=== PATIENT | male | born 1965 | race African-American/Black ===

== ENCOUNTER 2021-07-07 14:27 | Inpatient (IN) | payer BC ==
[2021-07-07 18:02] VITALS: BMI 36.4
[2021-07-07] MEDS ORDERED: ACETAMINOPHEN 325 MG TABLET (FP) PO PRN ×2 (20:39)
[2021-07-07] MEDS ORDERED: IBUPROFEN 400 MG TABLET (FP) PO PRN (20:39)
[2021-07-07] MEDS ORDERED: BISMUTH SUBSALICYLATE 524 MG/30 ML PO PRN (20:39)
[2021-07-07] MEDS ORDERED: MAGNESIUM HYDROX 2400MG/30ML ORAL SUSPENSION 30 ML CUP PO PRN (20:39)
[2021-07-07] MEDS ORDERED: ONDANSETRON *ODT* 4 MG TABLET SL PRN (20:39)
[2021-07-07] MEDS ORDERED: MAG HYDROX/AL HYDROX/SIMETH 30 ML UNIT-DOSE CUP PO PRN (20:39)
[2021-07-07] MEDS ORDERED: MENTHOL/PHENOL 1 EACH UD MM PRN (20:39)
[2021-07-07] MEDS ORDERED: METHOCARBAMOL 500 MG TABLET PO PRN (20:39)
[2021-07-07] MEDS ORDERED: MAGNESIUM CITRATE 300 ML BOTTLE PO PRN (20:39)
[2021-07-07] MEDS ORDERED: diazePAM 5 MG TABLET PO PRN (20:42)
[2021-07-08] MEDS ORDERED: diazePAM 5 MG TABLET ONE (00:02)
[2021-07-08] MEDS: THIAMINE HCL 100 MG TABLET (FP) PO SCH ×2 (00:07→22:05)
[2021-07-08] MEDS: MELATONIN 5 MG TABLETS PO SCH ×2 (00:07→22:08)
[2021-07-08] MEDS: diazePAM 5 MG TABLET PO SCH ×5 (00:07→22:05)
[2021-07-08] MEDS ORDERED: INSULIN (NOVOLOG) ASPART 100 UNITS/ML 10ML VIAL ONE ×4 (06:15→20:43)
[2021-07-08] MEDS ORDERED: INSULIN SLIDING SCALE (NOVOLOG) 1 VIAL SQ SCH (07:00)
[2021-07-08 08:22] LABS: HEMATOCRIT 32.2 % (35.4-49); HEMOGLOBIN 10.6 GM/dL (11.7-16.9); MCHC 32.9 g/dl (32.0-35.9); MEAN CELL VOLUME 82.3 fl (80-96); MEAN PLT VOLUME 8.6 fl (7.5-11.1); PLATELET COUNT 376 10^3/uL (134-434); RBC 3.91 M/mm3 (4.00-5.60); RDW 18.6 % (11.9-15.9); WHITE BLOOD COUNT 8.6 K/mm3 (4.0-10.0)
[2021-07-08 08:27] LABS: CHLORIDE 100 mmol/L (98-107); SODIUM 133 mmol/L (136-145)
[2021-07-08 08:57] LABS: ALBUMIN 3.6 g/dl (3.4-5.0)
[2021-07-08 08:59] LABS: ALK PHOS 160 U/L (45-117); ANION GAP 8 MMOL/L (8-16); BLOOD UREA NITROGEN 36.1 mg/dL (7-18); CO2 26 mmol/L (21-32); CREATININE 1.7 mg/dL (0.55-1.3); SGPT/ALT 29 U/L (13-61)
[2021-07-08 09:01] LABS: BILIRUBIN,TOTAL 0.5 mg/dL (0.2-1); TOT PROT 8.6 g/dl (6.4-8.2)
[2021-07-08 09:04] LABS: SGOT/AST 15 U/L (15-37)
[2021-07-08 09:08] LABS: GLUCOSE,RANDOM 427 mg/dL (74-106)
[2021-07-08] MEDS ORDERED: cloNIDine HCL 0.1 MG TABLET PO PRN (09:37)
[2021-07-08] MEDS: PRENATAL VITAMINS W/ FOLIC ACID TABLET (FP) PO SCH (11:14)
[2021-07-08] MEDS: INSULIN SLIDING SCALE (NOVOLOG) 1 VIAL SQ SCH ×3 (11:44→22:06)
[2021-07-08] MEDS: INSULIN (LEVEMIR) 100 UNITS/ML UNITS SQ SCH ×2 (11:44→18:00)
[2021-07-08] MEDS: SERTRALINE HCL 50 MG TABLET (FP) PO SCH (12:10)
[2021-07-08] MEDS: QUEtiapine FUMARATE 100 MG TABLET (FP) PO SCH (22:06)
[2021-07-09] MEDS: diazePAM 5 MG TABLET PO SCH ×3 (06:22→22:37)
[2021-07-09] MEDS: INSULIN (LEVEMIR) 100 UNITS/ML UNITS SQ SCH ×2 (06:23→18:22)
[2021-07-09] MEDS: INSULIN SLIDING SCALE (NOVOLOG) 1 VIAL SQ SCH ×4 (06:24→22:35)
[2021-07-09] MEDS: SERTRALINE HCL 50 MG TABLET (FP) PO SCH (10:13)
[2021-07-09] MEDS: PRENATAL VITAMINS W/ FOLIC ACID TABLET (FP) PO SCH (10:13)
[2021-07-09] MEDS ORDERED: INSULIN (NOVOLOG) ASPART 100 UNITS/ML 10ML VIAL ONE ×3 (11:41→22:35)
[2021-07-09] MEDS: THIAMINE HCL 100 MG TABLET (FP) PO SCH (22:32)
[2021-07-09] MEDS: MELATONIN 5 MG TABLETS PO SCH (22:32)
[2021-07-09] MEDS: QUEtiapine FUMARATE 100 MG TABLET (FP) PO SCH (22:33)
[2021-07-10] MEDS: diazePAM 5 MG TABLET PO SCH ×2 (06:24→17:55)
[2021-07-10] MEDS: INSULIN (LEVEMIR) 100 UNITS/ML UNITS SQ SCH ×2 (06:34→20:30)
[2021-07-10] MEDS: INSULIN SLIDING SCALE (NOVOLOG) 1 VIAL SQ SCH ×4 (07:11→20:33)
[2021-07-10] MEDS ORDERED: INSULIN (NOVOLOG) ASPART 100 UNITS/ML 10ML VIAL ONE ×2 (11:33→20:34)
[2021-07-10] MEDS: SERTRALINE HCL 50 MG TABLET (FP) PO SCH (11:34)
[2021-07-10] MEDS: PRENATAL VITAMINS W/ FOLIC ACID TABLET (FP) PO SCH (11:34)
[2021-07-10] MEDS: MELATONIN 5 MG TABLETS PO SCH (22:33)
[2021-07-10] MEDS: THIAMINE HCL 100 MG TABLET (FP) PO SCH (22:33)
[2021-07-10] MEDS: QUEtiapine FUMARATE 100 MG TABLET (FP) PO SCH (22:33)
[2021-07-11] MEDS ORDERED: diazePAM 5 MG TABLET PO ONE (06:00)
[2021-07-11 06:12] VITALS: BP 123/71; PULSE 61; TEMP 97.7
[2021-07-11] MEDS: INSULIN SLIDING SCALE (NOVOLOG) 1 VIAL SQ SCH (06:53)
[2021-07-11] MEDS: INSULIN (LEVEMIR) 100 UNITS/ML UNITS SQ SCH (06:53)
[2021-07-11] MEDS: SERTRALINE HCL 50 MG TABLET (FP) PO SCH (10:16)
[2021-07-11] MEDS: PRENATAL VITAMINS W/ FOLIC ACID TABLET (FP) PO SCH (10:16)
== END 2021-07-11 09:52 | disposition home or self-care (01) | DRG 774 ==
LOC: YASAS 14:27 → Y6N 07-08 02:03
PROVIDERS: ADMIT Allergy & Immunology; ATTEND Allergy & Immunology
PROC: HZ2ZZZZ Detoxification Services for Substance Abuse Treatment (ICD-10-PCS; principal; 2021-07-08)
DX: F10.230 Alcohol dependence with withdrawal, uncomplicated (principal); F14.10 Cocaine abuse, uncomplicated; F16.20 Hallucinogen dependence, uncomplicated; F10.280 Alcohol dependence with alcohol-induced anxiety disorder; F32.9 Major depressive disorder, single episode, unspecified; F41.9 Anxiety disorder, unspecified; E11.42 Type 2 diabetes mellitus with diabetic polyneuropathy; E11.65 Type 2 diabetes mellitus with hyperglycemia; Z79.4 Long term (current) use of insulin; G62.9 Polyneuropathy, unspecified; L97.528 Non-pressure chronic ulcer of other part of left foot with other specified severity; L97.511 Non-pressure chronic ulcer of other part of right foot limited to breakdown of skin; E66.9 Obesity, unspecified; Z68.39 Body mass index [BMI] 39.0-39.9, adult; Z62.810 Personal history of physical and sexual abuse in childhood; R26.89 Other abnormalities of gait and mobility; Z99.89 Dependence on other enabling machines and devices; Z89.422 Acquired absence of other left toe(s); Z89.421 Acquired absence of other right toe(s); Z87.891 Personal history of nicotine dependence; Z87.39 Personal history of other diseases of the musculoskeletal system and connective tissue; Y83.5 Amputation of limb(s) as the cause of abnormal reaction of the patient, or of later complication, without mention of misadventure at the time of the procedure
CPT/HCPCS: 36415; 80053; 82962; 85027; 86780; 93005; 93010; C9803; J0735; U0003; U0005

== ENCOUNTER 2022-01-05 12:30 | Inpatient (IN) | payer BC ==
[2022-01-05] MEDS ORDERED: MAG HYDROX/AL HYDROX/SIMETH 30 ML UNIT-DOSE CUP PO PRN (18:15)
[2022-01-05] MEDS ORDERED: guaiFENesin 200 MG/10 ML 10 ML UNIT-DOSE CUPS PO PRN (18:15)
[2022-01-05] MEDS ORDERED: MAGNESIUM CITRATE 300 ML BOTTLE PO PRN (18:15)
[2022-01-05] MEDS ORDERED: LOPERAMIDE HCL 2 MG CAPSULE PO PRN (18:15)
[2022-01-05] MEDS ORDERED: MAGNESIUM HYDROX 2400MG/30ML ORAL SUSPENSION 30 ML CUP PO PRN (18:15)
[2022-01-05] MEDS ORDERED: NICOTINE 10 MG CARTRIDGE (INHALER) IH PRN (18:15)
[2022-01-05] MEDS ORDERED: ACETAMINOPHEN 325 MG TABLET (FP) PO PRN (18:15)
[2022-01-05] MEDS ORDERED: IBUPROFEN 400 MG TABLET (FP) PO PRN (18:15)
[2022-01-05] MEDS ORDERED: P-EPHED 60MG/TRIPROLIDI 2.5MG TABLET PO PRN (18:15)
[2022-01-05] MEDS: INSULIN (LEVEMIR) 100 UNITS/ML UNITS SQ SCH (23:37)
[2022-01-05] MEDS: BACITRACIN 0.9 GM PACKET TP SCH (23:40)
[2022-01-05] MEDS: hydrOXYzine PAMOATE 25 MG CAPSULE (FP) PO SCH (23:41)
[2022-01-05] MEDS: THIAMINE HCL 100 MG TABLET (FP) PO SCH (23:41)
[2022-01-05] MEDS: MELATONIN 5 MG TABLETS PO SCH (23:42)
[2022-01-06] MEDS: VITAMINS A AND D TOPICAL OINTMENT 60 GM TUBE TP SCH ×4 (00:57→20:36)
[2022-01-06] MEDS: hydrOXYzine PAMOATE 25 MG CAPSULE (FP) PO SCH ×3 (05:45→10:34)
[2022-01-06] MEDS: INSULIN SLIDING SCALE (NOVOLOG) 1 VIAL SQ SCH ×2 (06:52→16:52)
[2022-01-06 10:20] LABS: HEMATOCRIT 35.3 % (35.4-49); HEMOGLOBIN 11.3 GM/dL (11.7-16.9); MCH 27.1 pg (25.7-33.7); MCHC 32.1 g/dl (32.0-35.9); MEAN CELL VOLUME 84.6 fl (80-96); MEAN PLT VOLUME 9.4 fl (7.5-11.1); PLATELET COUNT 297 10^3/uL (134-434); RBC 4.18 M/mm3 (4.00-5.60); RDW 15.6 % (11.9-15.9); WHITE BLOOD COUNT 5.8 K/mm3 (4.0-10.0)
[2022-01-06] MEDS: BACITRACIN 0.9 GM PACKET TP SCH ×2 (10:34→21:21)
[2022-01-06] MEDS: PRENATAL VITAMINS W/ FOLIC ACID TABLET (FP) PO SCH (10:34)
[2022-01-06] MEDS: NICOTINE 7 MG/24 HOURS TOPICAL PATCH TD SCH (10:34)
[2022-01-06 11:19] LABS: HIV INTERPRETATION NEGATIVE (NEGATIVE)
[2022-01-06 11:20] LABS: ALBUMIN 3.2 g/dl (3.4-5.0)
[2022-01-06 11:21] LABS: BLOOD UREA NITROGEN 31.5 mg/dL (7-18)
[2022-01-06 11:23] LABS: CREATININE 1.5 mg/dL (0.55-1.3)
[2022-01-06 11:25] LABS: BILIRUBIN,TOTAL 0.2 mg/dL (0.2-1)
[2022-01-06 11:26] LABS: TOT PROT 7.4 g/dl (6.4-8.2)
[2022-01-06] MEDS ORDERED: FLU VACC QS2021-22(6MOS UP)/PF 60 MCG/0.5 ML SYRINGE IM ONE (13:00)
[2022-01-06] MEDS: MELATONIN 5 MG TABLETS PO SCH (21:22)
[2022-01-06] MEDS: QUEtiapine FUMARATE 100 MG TABLET (FP) PO SCH (21:23)
[2022-01-06] MEDS: THIAMINE HCL 100 MG TABLET (FP) PO SCH (21:23)
[2022-01-06] MEDS: INSULIN (LEVEMIR) 100 UNITS/ML UNITS SQ SCH (21:28)
[2022-01-07] MEDS: VITAMINS A AND D TOPICAL OINTMENT 60 GM TUBE TP SCH ×4 (01:37→17:04)
[2022-01-07] MEDS: INSULIN SLIDING SCALE (NOVOLOG) 1 VIAL SQ SCH ×2 (07:10→16:50)
[2022-01-07] MEDS: BACITRACIN 0.9 GM PACKET TP SCH ×2 (11:05→22:20)
[2022-01-07] MEDS: PRENATAL VITAMINS W/ FOLIC ACID TABLET (FP) PO SCH (11:06)
[2022-01-07] MEDS: NICOTINE 7 MG/24 HOURS TOPICAL PATCH TD SCH (11:06)
[2022-01-07] MEDS: MELATONIN 5 MG TABLETS PO SCH (22:25)
[2022-01-07] MEDS: THIAMINE HCL 100 MG TABLET (FP) PO SCH (22:25)
[2022-01-07] MEDS: QUEtiapine FUMARATE 100 MG TABLET (FP) PO SCH (22:25)
[2022-01-07] MEDS: INSULIN (LEVEMIR) 100 UNITS/ML UNITS SQ SCH (22:27)
[2022-01-08] MEDS: VITAMINS A AND D TOPICAL OINTMENT 60 GM TUBE TP SCH ×4 (00:02→19:06)
[2022-01-08] MEDS: INSULIN SLIDING SCALE (NOVOLOG) 1 VIAL SQ SCH ×2 (07:47→16:53)
[2022-01-08] MEDS: NICOTINE 7 MG/24 HOURS TOPICAL PATCH TD SCH (10:21)
[2022-01-08] MEDS: BACITRACIN 0.9 GM PACKET TP SCH ×2 (10:21→21:05)
[2022-01-08] MEDS: PRENATAL VITAMINS W/ FOLIC ACID TABLET (FP) PO SCH (10:21)
[2022-01-08] MEDS: QUEtiapine FUMARATE 100 MG TABLET (FP) PO SCH (21:05)
[2022-01-08] MEDS: INSULIN (LEVEMIR) 100 UNITS/ML UNITS SQ SCH (21:05)
[2022-01-08] MEDS: MELATONIN 5 MG TABLETS PO SCH (21:05)
[2022-01-08] MEDS: THIAMINE HCL 100 MG TABLET (FP) PO SCH (21:05)
[2022-01-08] MEDS: hydrOXYzine PAMOATE 25 MG CAPSULE (FP) PO PRN (21:05)
[2022-01-09] MEDS: VITAMINS A AND D TOPICAL OINTMENT 60 GM TUBE TP SCH ×4 (00:42→18:00)
[2022-01-09] MEDS: INSULIN SLIDING SCALE (NOVOLOG) 1 VIAL SQ SCH ×2 (07:01→17:19)
[2022-01-09] MEDS: PRENATAL VITAMINS W/ FOLIC ACID TABLET (FP) PO SCH (10:46)
[2022-01-09] MEDS: NICOTINE 7 MG/24 HOURS TOPICAL PATCH TD SCH (10:46)
[2022-01-09] MEDS: BACITRACIN 0.9 GM PACKET TP SCH ×2 (10:46→23:12)
[2022-01-09] MEDS: MELATONIN 5 MG TABLETS PO SCH (21:06)
[2022-01-09] MEDS: hydrOXYzine PAMOATE 25 MG CAPSULE (FP) PO PRN (21:06)
[2022-01-09] MEDS: INSULIN (LEVEMIR) 100 UNITS/ML UNITS SQ SCH (21:06)
[2022-01-09] MEDS: QUEtiapine FUMARATE 100 MG TABLET (FP) PO SCH (21:06)
[2022-01-09] MEDS: THIAMINE HCL 100 MG TABLET (FP) PO SCH (21:06)
[2022-01-10 00:06] LABS: SARS-CoV-2 NAA Not Detected (Not Detected)
[2022-01-10] MEDS: VITAMINS A AND D TOPICAL OINTMENT 60 GM TUBE TP SCH ×4 (00:42→18:27)
[2022-01-10] MEDS: INSULIN SLIDING SCALE (NOVOLOG) 1 VIAL SQ SCH ×2 (07:32→17:00)
[2022-01-10] MEDS: NICOTINE 7 MG/24 HOURS TOPICAL PATCH TD SCH (10:16)
[2022-01-10] MEDS: PRENATAL VITAMINS W/ FOLIC ACID TABLET (FP) PO SCH (10:16)
[2022-01-10] MEDS: BACITRACIN 0.9 GM PACKET TP SCH ×2 (10:16→21:23)
[2022-01-10] MEDS ORDERED: GABAPENTIN 400 MG CAPSULE PO SCH (14:00)
[2022-01-10] MEDS ORDERED: GABAPENTIN 300 MG CAPSULE PO SCH (14:31)
[2022-01-10] MEDS: GABAPENTIN 300 MG CAPSULE PO SCH ×2 (14:50→21:23)
[2022-01-10] MEDS ORDERED: metFORMIN HCL 500 MG TABLET (FP) PO SCH (16:30)
[2022-01-10] MEDS: INSULIN (LEVEMIR) 100 UNITS/ML UNITS SQ SCH (21:21)
[2022-01-10] MEDS: QUEtiapine FUMARATE 100 MG TABLET (FP) PO SCH (21:23)
[2022-01-10] MEDS: MELATONIN 5 MG TABLETS PO SCH (21:23)
[2022-01-10] MEDS: THIAMINE HCL 100 MG TABLET (FP) PO SCH (21:23)
[2022-01-11] MEDS: VITAMINS A AND D TOPICAL OINTMENT 60 GM TUBE TP SCH ×4 (01:05→18:00)
[2022-01-11] MEDS: GABAPENTIN 300 MG CAPSULE PO SCH ×3 (06:58→22:08)
[2022-01-11] MEDS: INSULIN SLIDING SCALE (NOVOLOG) 1 VIAL SQ SCH ×2 (06:59→17:08)
[2022-01-11] MEDS: BACITRACIN 0.9 GM PACKET TP SCH ×2 (11:03→22:10)
[2022-01-11] MEDS: PRENATAL VITAMINS W/ FOLIC ACID TABLET (FP) PO SCH (11:03)
[2022-01-11] MEDS: NICOTINE 7 MG/24 HOURS TOPICAL PATCH TD SCH (11:03)
[2022-01-11] MEDS: MELATONIN 5 MG TABLETS PO SCH (22:08)
[2022-01-11] MEDS: INSULIN (LEVEMIR) 100 UNITS/ML UNITS SQ SCH (22:08)
[2022-01-11] MEDS: QUEtiapine FUMARATE 100 MG TABLET (FP) PO SCH (22:08)
[2022-01-11] MEDS: THIAMINE HCL 100 MG TABLET (FP) PO SCH (22:08)
[2022-01-12] MEDS: VITAMINS A AND D TOPICAL OINTMENT 60 GM TUBE TP SCH ×4 (00:20→18:07)
[2022-01-12] MEDS: GABAPENTIN 300 MG CAPSULE PO SCH ×3 (07:10→21:14)
[2022-01-12] MEDS: INSULIN SLIDING SCALE (NOVOLOG) 1 VIAL SQ SCH ×2 (07:12→16:54)
[2022-01-12] MEDS: BACITRACIN 0.9 GM PACKET TP SCH ×2 (10:17→21:12)
[2022-01-12] MEDS: PRENATAL VITAMINS W/ FOLIC ACID TABLET (FP) PO SCH (10:17)
[2022-01-12] MEDS: NICOTINE 7 MG/24 HOURS TOPICAL PATCH TD SCH (10:17)
[2022-01-12 18:03] LABS: EPI CELLS 3 /uL (0-25.1); HYALINE CASTS 0 /uL (0-3.1); PH,URINE 5.5 (5.0-8.0); URINE APPEARANCE CLEAR; URINE BACTERIA 301 /uL (0-1359); URINE BILIRUBIN NEGATIVE (NEGATIVE); URINE COLOR YELLOW; URINE GLUCOSE (UA) 2+ (NEGATIVE); URINE KETONE NEGATIVE (NEGATIVE); URINE LEUK ESTERASE NEGATIVE (NEGATIVE); URINE NITRITE NEGATIVE (NEGATIVE); URINE PROTEIN 1+ (NEGATIVE); URINE RBC 2 /uL (0-23.9); URINE UROBILINOGEN 0.2 mg/dL (0.2-1.0); URINE WBC 1 /uL (0-25.8)
[2022-01-12] MEDS: THIAMINE HCL 100 MG TABLET (FP) PO SCH (21:13)
[2022-01-12] MEDS: hydrOXYzine PAMOATE 25 MG CAPSULE (FP) PO PRN (21:13)
[2022-01-12] MEDS: QUEtiapine FUMARATE 100 MG TABLET (FP) PO SCH (21:13)
[2022-01-12] MEDS: INSULIN (LEVEMIR) 100 UNITS/ML UNITS SQ SCH (21:14)
[2022-01-12] MEDS: MELATONIN 5 MG TABLETS PO SCH (21:14)
[2022-01-13] MEDS: VITAMINS A AND D TOPICAL OINTMENT 60 GM TUBE TP SCH ×4 (00:36→17:22)
[2022-01-13] MEDS: GABAPENTIN 300 MG CAPSULE PO SCH ×3 (07:10→21:21)
[2022-01-13] MEDS: INSULIN SLIDING SCALE (NOVOLOG) 1 VIAL SQ SCH ×2 (07:10→17:21)
[2022-01-13 07:23] VITALS: BP 140/70; PULSE 61; TEMP 96.3
[2022-01-13] MEDS: BACITRACIN 0.9 GM PACKET TP SCH ×2 (11:13→21:22)
[2022-01-13] MEDS: PRENATAL VITAMINS W/ FOLIC ACID TABLET (FP) PO SCH (11:13)
[2022-01-13] MEDS: NICOTINE 7 MG/24 HOURS TOPICAL PATCH TD SCH (11:13)
[2022-01-13] MEDS: INSULIN (LEVEMIR) 100 UNITS/ML UNITS SQ SCH (21:22)
[2022-01-13] MEDS: MELATONIN 5 MG TABLETS PO SCH (21:22)
[2022-01-13] MEDS: QUEtiapine FUMARATE 100 MG TABLET (FP) PO SCH (21:22)
[2022-01-13] MEDS: THIAMINE HCL 100 MG TABLET (FP) PO SCH (21:22)
[2022-01-14] MEDS: VITAMINS A AND D TOPICAL OINTMENT 60 GM TUBE TP SCH ×3 (00:36→12:02)
[2022-01-14] MEDS ORDERED: INSULIN (NOVOLOG) ASPART 100 UNITS/ML 10ML VIAL ONE (02:39)
[2022-01-14] MEDS: GABAPENTIN 300 MG CAPSULE PO SCH ×2 (07:34→13:33)
[2022-01-14] MEDS: INSULIN SLIDING SCALE (NOVOLOG) 1 VIAL SQ SCH (07:34)
[2022-01-14] MEDS: PRENATAL VITAMINS W/ FOLIC ACID TABLET (FP) PO SCH (10:05)
[2022-01-14] MEDS: NICOTINE 7 MG/24 HOURS TOPICAL PATCH TD SCH (10:05)
[2022-01-14] MEDS: BACITRACIN 0.9 GM PACKET TP SCH (10:08)
== END 2022-01-14 13:36 | disposition home or self-care (01) | DRG 772 ==
LOC: YASAS 12:30 → Y5N 17:59
PROVIDERS: ADMIT Allergy & Immunology; ATTEND Allergy & Immunology
PROC: HZ42ZZZ Group Counseling for Substance Abuse Treatment, Cognitive-Behavioral (ICD-10-PCS; principal; 2022-01-05)
DX: F10.20 Alcohol dependence, uncomplicated (principal); F14.20 Cocaine dependence, uncomplicated; F16.20 Hallucinogen dependence, uncomplicated; F19.282 Other psychoactive substance dependence with psychoactive substance-induced sleep disorder; F41.9 Anxiety disorder, unspecified; F32.A Depression, unspecified; E11.42 Type 2 diabetes mellitus with diabetic polyneuropathy; Z79.4 Long term (current) use of insulin; L97.528 Non-pressure chronic ulcer of other part of left foot with other specified severity; L97.518 Non-pressure chronic ulcer of other part of right foot with other specified severity; Z62.810 Personal history of physical and sexual abuse in childhood; Z89.412 Acquired absence of left great toe; Z89.411 Acquired absence of right great toe; Z89.422 Acquired absence of other left toe(s); Z89.421 Acquired absence of other right toe(s); Z87.891 Personal history of nicotine dependence
CPT/HCPCS: 36415; 80053; 81003; 82962; 85027; 86780; 87389; 90686; C9803-CS; G0008; U0003; U0005

== ENCOUNTER 2023-04-08 09:19 | Inpatient (IN) | payer BC ==
[2023-04-08 10:30] VITALS: BMI 32.5
[2023-04-08] MEDS ORDERED: guaiFENesin 600 MG TABLET.ER (FP) PO PRN (12:03)
[2023-04-08] MEDS ORDERED: DICYCLOMINE HCL 10 MG CAPSULE PO PRN (12:03)
[2023-04-08] MEDS ORDERED: MAG HYDROX/AL HYDROX/SIMETH 30 ML UNIT-DOSE CUP PO PRN (12:03)
[2023-04-08] MEDS ORDERED: hydrOXYzine PAMOATE 25 MG CAPSULE (FP) PO PRN (12:03)
[2023-04-08] MEDS ORDERED: BISMUTH SUBSALICYLATE 524 MG/30 ML PO PRN (12:03)
[2023-04-08] MEDS ORDERED: POLYETHYLENE GLYCOL (HEALTHYLAX) 3350 17 GM PACKET PO PRN (12:03)
[2023-04-08] MEDS ORDERED: BENZONATATE 200 MG CAPSULE PO PRN (12:03)
[2023-04-08] MEDS ORDERED: NICOTINE 10 MG CARTRIDGE (INHALER) IH PRN (12:03)
[2023-04-08] MEDS ORDERED: NALOXONE HCL 0.4 MG/ML VIAL IM PRN (12:03)
[2023-04-08] MEDS ORDERED: BENZOCAINE/MENTHOL (CHLORASEPTIC ) LOZENGE MM PRN (12:03)
[2023-04-08] MEDS ORDERED: ACETAMINOPHEN 325 MG TABLET (FP) PO PRN (12:03)
[2023-04-08] MEDS ORDERED: LOPERAMIDE HCL 2 MG CAPSULE PO PRN (12:03)
[2023-04-08] MEDS ORDERED: chlordiazePOXIDE HCL 25 MG CAPSULE PO PRN (12:03)
[2023-04-08] MEDS ORDERED: ONDANSETRON *ODT* 4 MG TABLET SL PRN (12:03)
[2023-04-08] MEDS ORDERED: MAGNESIUM HYDROX 2400MG/30ML ORAL SUSPENSION 30 ML CUP PO PRN (12:03)
[2023-04-08] MEDS ORDERED: IBUPROFEN 600 MG TABLET (FP) PO PRN (12:03)
[2023-04-08] MEDS ORDERED: IBUPROFEN 400 MG TABLET (FP) PO PRN (12:03)
[2023-04-08] MEDS ORDERED: NALOXONE HCL (KLOXXADO) 8 MG SPRAY NS PRN (12:03)
[2023-04-08] MEDS ORDERED: METHOCARBAMOL 500 MG TABLET PO PRN (12:03)
[2023-04-08] MEDS ORDERED: INSULIN (NOVOLOG) ASPART 100 UNITS/ML 10ML VIAL SQ ONE (12:37)
[2023-04-08] MEDS ORDERED: INSULIN (NOVOLOG) ASPART 100 UNITS/ML 10ML VIAL ONE (12:46)
[2023-04-08] MEDS: chlordiazePOXIDE HCL 25 MG CAPSULE PO SCH ×2 (19:13→23:20)
[2023-04-08] MEDS: INSULIN SLIDING SCALE (NOVOLOG) 1 VIAL SQ SCH ×2 (19:13→23:16)
[2023-04-08] MEDS ORDERED: QUEtiapine FUMARATE 100 MG TABLET (FP) PO ONE (22:00)
[2023-04-08] MEDS ORDERED: metFORMIN HCL 500 MG TABLET (FP) PO SCH (22:00)
[2023-04-08] MEDS: THIAMINE HCL 100 MG TABLET (FP) PO SCH (23:15)
[2023-04-08] MEDS: INSULIN (LEVEMIR) 100 UNITS/ML UNITS SQ SCH (23:18)
[2023-04-08] MEDS: GABAPENTIN 400 MG CAPSULE PO SCH (23:20)
[2023-04-08] MEDS: MELATONIN 5 MG TABLETS PO SCH (23:20)
[2023-04-08] MEDS: BACITRACIN 0.9 GM PACKET TP SCH (23:20)
[2023-04-09] MEDS: chlordiazePOXIDE HCL 25 MG CAPSULE PO SCH ×4 (05:45→23:15)
[2023-04-09] MEDS: metFORMIN HCL 500 MG TABLET (FP) PO SCH ×2 (06:21→17:26)
[2023-04-09] MEDS: INSULIN SLIDING SCALE (NOVOLOG) 1 VIAL SQ SCH ×4 (06:21→23:10)
[2023-04-09] MEDS ORDERED: PRENATAL VITAMINS W/ FOLIC ACID TABLET (FP) PO SCH (10:00)
[2023-04-09 10:14] LABS: POTASSIUM 3.6 mmol/L (3.5-5.1)
[2023-04-09 10:17] LABS: HEMATOCRIT 39.2 % (35.4-49); HEMOGLOBIN 12.6 GM/dL (11.7-16.9); MCH 28.8 pg (25.7-33.7); MCHC 32.2 g/dl (32.0-35.9); MEAN CELL VOLUME 89.4 fl (80-96); MEAN PLT VOLUME 9.3 fl (7.5-11.1); PLATELET COUNT 247 10^3/uL (134-434); RBC 4.39 M/mm3 (4.00-5.60); RDW 14.4 % (11.9-15.9); WHITE BLOOD COUNT 8.4 K/mm3 (4.0-10.0)
[2023-04-09 10:21] LABS: ALBUMIN 2.8 g/dl (3.4-5.0); CALCIUM 8.6 mg/dL (8.5-10.1)
[2023-04-09 10:22] LABS: BLOOD UREA NITROGEN 20.7 mg/dL (7-18)
[2023-04-09 10:24] LABS: CREATININE 1.4 mg/dL (0.55-1.3)
[2023-04-09 10:26] LABS: BILIRUBIN,TOTAL 0.2 mg/dL (0.2-1)
[2023-04-09] MEDS: GABAPENTIN 400 MG CAPSULE PO SCH ×2 (10:53→23:14)
[2023-04-09] MEDS: BACITRACIN 0.9 GM PACKET TP SCH ×2 (10:56→23:28)
[2023-04-09] MEDS ORDERED: ARIPiprazole 10 MG TABLET PO ONE (11:15)
[2023-04-09] MEDS ORDERED: INSULIN SLIDING SCALE (NOVOLOG) 1 VIAL SQ ONE (11:41)
[2023-04-09] MEDS ORDERED: traZODone HCL 50 MG TABLET (FP) PO SCH (22:00)
[2023-04-09] MEDS: INSULIN (LEVEMIR) 100 UNITS/ML UNITS SQ SCH (23:08)
[2023-04-09] MEDS: MELATONIN 5 MG TABLETS PO SCH (23:14)
[2023-04-09] MEDS: THIAMINE HCL 100 MG TABLET (FP) PO SCH (23:14)
[2023-04-10] MEDS ORDERED: chlordiazePOXIDE HCL 25 MG CAPSULE PO SCH (05:00)
[2023-04-10] MEDS: metFORMIN HCL 500 MG TABLET (FP) PO SCH (06:12)
[2023-04-10] MEDS: INSULIN SLIDING SCALE (NOVOLOG) 1 VIAL SQ SCH (06:14)
[2023-04-10] MEDS ORDERED: INSULIN SLIDING SCALE (NOVOLOG) 1 VIAL SQ ONE (06:15)
[2023-04-10 06:31] VITALS: BP 160/67; PULSE 65; RESP 16; TEMP 97.7
[2023-04-10] MEDS ORDERED: ARIPiprazole 10 MG TABLET PO SCH (10:00)
[2023-04-11] MEDS ORDERED: chlordiazePOXIDE HCL 10 MG CAPSULE PO PRN
[2023-04-11] MEDS ORDERED: chlordiazePOXIDE HCL 10 MG CAPSULE PO SCH (05:00)
[2023-04-12] MEDS ORDERED: chlordiazePOXIDE HCL 10 MG CAPSULE PO SCH (05:00)
[2023-04-13] MEDS ORDERED: chlordiazePOXIDE HCL 10 MG CAPSULE PO ONE (05:00)
== END 2023-04-10 09:53 | disposition left against medical advice (07) | DRG 770 ==
LOC: YASAS 09:19 → Y3N 12:12
PROVIDERS: ADMIT Allergy & Immunology; ATTEND Surgery
PROC: HZ2ZZZZ Detoxification Services for Substance Abuse Treatment (ICD-10-PCS; principal; 2023-04-08)
DX: F10.230 Alcohol dependence with withdrawal, uncomplicated (principal); F14.20 Cocaine dependence, uncomplicated; F12.20 Cannabis dependence, uncomplicated; F41.9 Anxiety disorder, unspecified; F32.A Depression, unspecified; E78.5 Hyperlipidemia, unspecified; E11.42 Type 2 diabetes mellitus with diabetic polyneuropathy; Z79.4 Long term (current) use of insulin; Z89.511 Acquired absence of right leg below knee; Z89.432 Acquired absence of left foot; L97.919 Non-pressure chronic ulcer of unspecified part of right lower leg with unspecified severity; T87.89 Other complications of amputation stump; F91.8 Other conduct disorders; Z91.199 Patient's noncompliance with other medical treatment and regimen due to unspecified reason
CPT/HCPCS: 36415; 80053; 82962; 85027; 86780; 87635; 87811

== ENCOUNTER 2023-07-27 21:15 | Inpatient (IN) | payer BC ==
[2023-07-27 22:13] VITALS: BMI 31.8
[2023-07-28] MEDS ORDERED: BENZOCAINE/MENTHOL (CHLORASEPTIC ) LOZENGE MM PRN (00:49)
[2023-07-28] MEDS ORDERED: LOPERAMIDE HCL 2 MG CAPSULE PO PRN (00:49)
[2023-07-28] MEDS ORDERED: IBUPROFEN 600 MG TABLET (FP) PO PRN (00:49)
[2023-07-28] MEDS ORDERED: guaiFENesin 600 MG TABLET.ER (FP) PO PRN (00:49)
[2023-07-28] MEDS ORDERED: ACETAMINOPHEN 325 MG TABLET (FP) PO PRN (00:49)
[2023-07-28] MEDS ORDERED: MAGNESIUM HYDROX 2400MG/30ML ORAL SUSPENSION 30 ML CUP PO PRN (00:49)
[2023-07-28] MEDS ORDERED: BENZONATATE 200 MG CAPSULE PO PRN (00:49)
[2023-07-28] MEDS ORDERED: POLYETHYLENE GLYCOL (HEALTHYLAX) 3350 17 GM PACKET PO PRN (00:49)
[2023-07-28] MEDS ORDERED: MAG HYDROX/AL HYDROX/SIMETH 30 ML UNIT-DOSE CUP PO PRN (00:49)
[2023-07-28] MEDS ORDERED: COLLOIDAL OATMEAL 1 BAR EACH TP PRN (00:49)
[2023-07-28] MEDS ORDERED: hydrOXYzine PAMOATE 25 MG CAPSULE (FP) PO PRN (00:49)
[2023-07-28] MEDS ORDERED: IBUPROFEN 400 MG TABLET (FP) PO PRN (00:49)
[2023-07-28 05:30] LABS: EPI CELLS 1 /uL (0-25.1); HYALINE CASTS 0 /uL (0-3.1); PH,URINE 5.5 (5.0-8.0); URINE APPEARANCE CLEAR; URINE BACTERIA 1 /uL (0-1359); URINE BILIRUBIN NEGATIVE (NEGATIVE); URINE COLOR YELLOW; URINE GLUCOSE (UA) 3+ (NEGATIVE); URINE KETONE NEGATIVE (NEGATIVE); URINE LEUK ESTERASE NEGATIVE (NEGATIVE); URINE NITRITE NEGATIVE (NEGATIVE); URINE PROTEIN 2+ (NEGATIVE); URINE RBC 1 /uL (0-23.9); URINE UROBILINOGEN 0.2 mg/dL (0.2-1.0); URINE WBC 2 /uL (0-25.8)
[2023-07-28] MEDS: INSULIN SLIDING SCALE (NOVOLOG) 1 VIAL SQ SCH ×5 (07:13→21:11)
[2023-07-28] MEDS: PRENATAL VITAMINS W/ FOLIC ACID TABLET (FP) PO SCH (09:41)
[2023-07-28] MEDS: THIAMINE HCL 100 MG TABLET (FP) PO SCH (21:09)
[2023-07-28] MEDS: traZODone HCL 50 MG TABLET (FP) PO SCH (21:10)
[2023-07-28] MEDS: ARIPiprazole 15 MG TABLET PO SCH (21:17)
[2023-07-28] MEDS ORDERED: MELATONIN 5 MG TABLETS PO SCH (22:00)
[2023-07-29] MEDS: INSULIN SLIDING SCALE (NOVOLOG) 1 VIAL SQ SCH ×4 (06:59→22:09)
[2023-07-29] MEDS: PRENATAL VITAMINS W/ FOLIC ACID TABLET (FP) PO SCH (09:50)
[2023-07-29] MEDS ORDERED: INSULIN SLIDING SCALE (NOVOLOG) 1 VIAL SQ ONE (11:17)
[2023-07-29 11:44] LABS: HEMATOCRIT 40.9 % (35.4-49); HEMOGLOBIN 13.2 GM/dL (11.7-16.9); MCH 29.2 pg (25.7-33.7); MCHC 32.3 g/dl (32.0-35.9); MEAN CELL VOLUME 90.4 fl (80-96); MEAN PLT VOLUME 9.3 fl (7.5-11.1); PLATELET COUNT 280 10^3/uL (134-434); RBC 4.53 M/mm3 (4.00-5.60); RDW 13.3 % (11.9-15.9); WHITE BLOOD COUNT 9.4 K/mm3 (4.0-10.0)
[2023-07-29 11:59] LABS: POTASSIUM 4.2 mmol/L (3.5-5.1)
[2023-07-29 12:01] LABS: CALCIUM 8.8 mg/dL (8.5-10.1)
[2023-07-29 12:05] LABS: ALBUMIN 3.5 g/dl (3.4-5.0); BLOOD UREA NITROGEN 15.6 mg/dL (7-18); CREATININE 1.5 mg/dL (0.55-1.3)
[2023-07-29 12:06] LABS: TOT PROT 6.9 g/dl (6.4-8.2)
[2023-07-29 12:10] LABS: BILIRUBIN,TOTAL 0.3 mg/dL (0.2-1)
[2023-07-29 12:26] LABS: SYPHILIS W/ RPR CONF NON-REACTIVE (NONREACTIVE)
[2023-07-29] MEDS: traZODone HCL 50 MG TABLET (FP) PO SCH (21:58)
[2023-07-29] MEDS: THIAMINE HCL 100 MG TABLET (FP) PO SCH (21:58)
[2023-07-29] MEDS: ARIPiprazole 15 MG TABLET PO SCH (21:58)
[2023-07-30] MEDS: INSULIN SLIDING SCALE (NOVOLOG) 1 VIAL SQ SCH ×4 (07:11→21:40)
[2023-07-30] MEDS: PRENATAL VITAMINS W/ FOLIC ACID TABLET (FP) PO SCH (10:09)
[2023-07-30] MEDS: ARIPiprazole 15 MG TABLET PO SCH (21:38)
[2023-07-30] MEDS: traZODone HCL 50 MG TABLET (FP) PO SCH (21:38)
[2023-07-30] MEDS: THIAMINE HCL 100 MG TABLET (FP) PO SCH (21:38)
[2023-07-31] MEDS: INSULIN SLIDING SCALE (NOVOLOG) 1 VIAL SQ SCH ×4 (07:07→21:01)
[2023-07-31] MEDS: PRENATAL VITAMINS W/ FOLIC ACID TABLET (FP) PO SCH (10:17)
[2023-07-31] MEDS: THIAMINE HCL 100 MG TABLET (FP) PO SCH (21:00)
[2023-07-31] MEDS: traZODone HCL 50 MG TABLET (FP) PO SCH (21:01)
[2023-07-31] MEDS: ARIPiprazole 15 MG TABLET PO SCH (21:01)
[2023-08-01] MEDS: INSULIN SLIDING SCALE (NOVOLOG) 1 VIAL SQ SCH ×4 (06:41→21:17)
[2023-08-01] MEDS: PRENATAL VITAMINS W/ FOLIC ACID TABLET (FP) PO SCH (10:10)
[2023-08-01] MEDS: THIAMINE HCL 100 MG TABLET (FP) PO SCH (21:16)
[2023-08-01] MEDS: traZODone HCL 50 MG TABLET (FP) PO SCH (21:17)
[2023-08-01] MEDS: ARIPiprazole 15 MG TABLET PO SCH (21:17)
[2023-08-02] MEDS: INSULIN SLIDING SCALE (NOVOLOG) 1 VIAL SQ SCH ×4 (06:23→21:17)
[2023-08-02] MEDS: PRENATAL VITAMINS W/ FOLIC ACID TABLET (FP) PO SCH (09:40)
[2023-08-02] MEDS: traZODone HCL 50 MG TABLET (FP) PO SCH (21:17)
[2023-08-02] MEDS: ARIPiprazole 15 MG TABLET PO SCH (21:17)
[2023-08-02] MEDS: THIAMINE HCL 100 MG TABLET (FP) PO SCH (21:17)
[2023-08-03] MEDS: INSULIN SLIDING SCALE (NOVOLOG) 1 VIAL SQ SCH ×4 (07:06→21:39)
[2023-08-03] MEDS: PRENATAL VITAMINS W/ FOLIC ACID TABLET (FP) PO SCH (09:37)
[2023-08-03] MEDS: THIAMINE HCL 100 MG TABLET (FP) PO SCH (21:31)
[2023-08-03] MEDS: ARIPiprazole 15 MG TABLET PO SCH (21:32)
[2023-08-03] MEDS: traZODone HCL 50 MG TABLET (FP) PO SCH (21:32)
[2023-08-04] MEDS: INSULIN SLIDING SCALE (NOVOLOG) 1 VIAL SQ SCH ×4 (06:05→21:24)
[2023-08-04] MEDS: PRENATAL VITAMINS W/ FOLIC ACID TABLET (FP) PO SCH (09:43)
[2023-08-04] MEDS: ARIPiprazole 15 MG TABLET PO SCH (21:23)
[2023-08-04] MEDS: traZODone HCL 50 MG TABLET (FP) PO SCH (21:23)
[2023-08-04] MEDS: THIAMINE HCL 100 MG TABLET (FP) PO SCH (21:25)
[2023-08-05] MEDS: INSULIN SLIDING SCALE (NOVOLOG) 1 VIAL SQ SCH ×4 (06:43→21:19)
[2023-08-05] MEDS: PRENATAL VITAMINS W/ FOLIC ACID TABLET (FP) PO SCH ×2 (09:36→09:52)
[2023-08-05] MEDS: ARIPiprazole 15 MG TABLET PO SCH (21:18)
[2023-08-05] MEDS: THIAMINE HCL 100 MG TABLET (FP) PO SCH (21:18)
[2023-08-05] MEDS: traZODone HCL 50 MG TABLET (FP) PO SCH (21:18)
[2023-08-06] MEDS: INSULIN SLIDING SCALE (NOVOLOG) 1 VIAL SQ SCH ×4 (06:07→21:12)
[2023-08-06] MEDS: PRENATAL VITAMINS W/ FOLIC ACID TABLET (FP) PO SCH (09:28)
[2023-08-06] MEDS: traZODone HCL 50 MG TABLET (FP) PO SCH (21:11)
[2023-08-06] MEDS: ARIPiprazole 15 MG TABLET PO SCH (21:11)
[2023-08-06] MEDS: THIAMINE HCL 100 MG TABLET (FP) PO SCH (21:11)
[2023-08-07] MEDS: INSULIN SLIDING SCALE (NOVOLOG) 1 VIAL SQ SCH ×4 (06:17→21:38)
[2023-08-07] MEDS: PRENATAL VITAMINS W/ FOLIC ACID TABLET (FP) PO SCH (09:36)
[2023-08-07] MEDS: traZODone HCL 50 MG TABLET (FP) PO SCH (21:32)
[2023-08-07] MEDS: ARIPiprazole 15 MG TABLET PO SCH (21:32)
[2023-08-07] MEDS: THIAMINE HCL 100 MG TABLET (FP) PO SCH (21:38)
[2023-08-08] MEDS: INSULIN SLIDING SCALE (NOVOLOG) 1 VIAL SQ SCH ×4 (06:03→21:04)
[2023-08-08] MEDS: PRENATAL VITAMINS W/ FOLIC ACID TABLET (FP) PO SCH (09:25)
[2023-08-08] MEDS ORDERED: INSULIN SLIDING SCALE (NOVOLOG) 1 VIAL SQ ONE (11:29)
[2023-08-08] MEDS: THIAMINE HCL 100 MG TABLET (FP) PO SCH (21:03)
[2023-08-08] MEDS: ARIPiprazole 15 MG TABLET PO SCH (21:03)
[2023-08-08] MEDS: traZODone HCL 50 MG TABLET (FP) PO SCH (21:03)
[2023-08-09] MEDS: INSULIN SLIDING SCALE (NOVOLOG) 1 VIAL SQ SCH ×4 (06:08→21:22)
[2023-08-09 07:01] VITALS: PULSE 60
[2023-08-09] MEDS: PRENATAL VITAMINS W/ FOLIC ACID TABLET (FP) PO SCH (10:47)
[2023-08-09] MEDS: ARIPiprazole 15 MG TABLET PO SCH (21:21)
[2023-08-09] MEDS: THIAMINE HCL 100 MG TABLET (FP) PO SCH (21:21)
[2023-08-09] MEDS: traZODone HCL 50 MG TABLET (FP) PO SCH (21:21)
[2023-08-10] MEDS: INSULIN SLIDING SCALE (NOVOLOG) 1 VIAL SQ SCH ×2 (06:31→10:16)
[2023-08-10 07:12] VITALS: BP 130/62; RESP 17; TEMP 97.8
[2023-08-10] MEDS: PRENATAL VITAMINS W/ FOLIC ACID TABLET (FP) PO SCH (10:16)
== END 2023-08-10 09:36 | disposition home or self-care (01) | DRG 772 ==
LOC: YASAS 21:15 → Y3W 07-28 01:15
PROVIDERS: ADMIT Allergy & Immunology; ATTEND Psychiatry & Neurology Pain Medicine
PROC: HZ42ZZZ Group Counseling for Substance Abuse Treatment, Cognitive-Behavioral (ICD-10-PCS; principal; 2023-07-28)
DX: F14.20 Cocaine dependence, uncomplicated (principal); F10.20 Alcohol dependence, uncomplicated; F16.20 Hallucinogen dependence, uncomplicated; F12.20 Cannabis dependence, uncomplicated; F17.210 Nicotine dependence, cigarettes, uncomplicated; F19.282 Other psychoactive substance dependence with psychoactive substance-induced sleep disorder; F10.280 Alcohol dependence with alcohol-induced anxiety disorder; F39 Unspecified mood [affective] disorder; E11.42 Type 2 diabetes mellitus with diabetic polyneuropathy; Z79.4 Long term (current) use of insulin; Z89.412 Acquired absence of left great toe; Z89.422 Acquired absence of other left toe(s); Z89.511 Acquired absence of right leg below knee
CPT/HCPCS: 36415; 80053; 81003; 82962; 85027; 86780; 86803; 87635

== ENCOUNTER 2023-10-12 17:51 | Inpatient (IN) | payer BC ==
[2023-10-12 18:32] VITALS: BMI 27.1
[2023-10-12] MEDS ORDERED: BENZOCAINE/MENTHOL (CHLORASEPTIC ) LOZENGE MM PRN (21:43)
[2023-10-12] MEDS ORDERED: MAGNESIUM HYDROX 2400MG/30ML ORAL SUSPENSION 30 ML CUP PO PRN (21:43)
[2023-10-12] MEDS ORDERED: BENZONATATE 200 MG CAPSULE PO PRN (21:43)
[2023-10-12] MEDS ORDERED: guaiFENesin 600 MG TABLET.ER (FP) PO PRN (21:43)
[2023-10-12] MEDS ORDERED: LOPERAMIDE HCL 2 MG CAPSULE PO PRN (21:43)
[2023-10-12] MEDS ORDERED: P-EPHED 60MG/TRIPROLIDI 2.5MG TABLET PO PRN (21:43)
[2023-10-12] MEDS ORDERED: IBUPROFEN 600 MG TABLET (FP) PO PRN (21:43)
[2023-10-12] MEDS ORDERED: COLLOIDAL OATMEAL 1 BAR EACH TP PRN (21:43)
[2023-10-12] MEDS ORDERED: IBUPROFEN 400 MG TABLET (FP) PO PRN (21:43)
[2023-10-12] MEDS ORDERED: POLYETHYLENE GLYCOL (HEALTHYLAX) 3350 17 GM PACKET PO PRN (21:43)
[2023-10-12] MEDS ORDERED: MAG HYDROX/AL HYDROX/SIMETH 30 ML UNIT-DOSE CUP PO PRN (21:43)
[2023-10-12] MEDS ORDERED: ACETAMINOPHEN 325 MG TABLET (FP) PO PRN (21:43)
[2023-10-12] MEDS: MELATONIN 5 MG TABLETS PO SCH (22:17)
[2023-10-12] MEDS: THIAMINE HCL 100 MG TABLET (FP) PO SCH (22:17)
[2023-10-12] MEDS: INSULIN SLIDING SCALE (NOVOLOG) 1 VIAL SQ SCH ×2 (22:18→22:21)
[2023-10-13] MEDS: INSULIN SLIDING SCALE (NOVOLOG) 1 VIAL SQ SCH ×4 (06:41→21:42)
[2023-10-13] MEDS: metFORMIN HCL 500 MG TABLET (FP) PO SCH ×2 (06:42→17:14)
[2023-10-13] MEDS: PRENATAL VITAMINS W/ FOLIC ACID TABLET (FP) PO SCH (09:32)
[2023-10-13 09:55] LABS: HEMATOCRIT 38.9 % (35.4-49); HEMOGLOBIN 12.8 GM/dL (11.7-16.9); MCHC 32.9 g/dl (32.0-35.9); MEAN CELL VOLUME 88.1 fl (80-96); MEAN PLT VOLUME 8.5 fl (7.5-11.1); PLATELET COUNT 339 10^3/uL (134-434); RBC 4.42 M/mm3 (4.00-5.60); RDW 13.5 % (11.9-15.9); WHITE BLOOD COUNT 5.3 K/mm3 (4.0-10.0)
[2023-10-13 10:11] LABS: EPI CELLS 7 /uL (0-25.1); HYALINE CASTS 1 /uL (0-3.1); PH,URINE 5.5 (5.0-8.0); URINE APPEARANCE CLEAR; URINE BACTERIA 38 /uL (0-1359); URINE BILIRUBIN NEGATIVE (NEGATIVE); URINE COLOR YELLOW; URINE GLUCOSE (UA) 3+ (NEGATIVE); URINE KETONE NEGATIVE (NEGATIVE); URINE LEUK ESTERASE NEGATIVE (NEGATIVE); URINE NITRITE NEGATIVE (NEGATIVE); URINE PROTEIN 2+ (NEGATIVE); URINE RBC 43 /uL (0-23.9); URINE UROBILINOGEN 0.2 mg/dL (0.2-1.0); URINE WBC 4 /uL (0-25.8)
[2023-10-13] MEDS: SERTRALINE HCL 50 MG TABLET (FP) PO SCH (11:35)
[2023-10-13 11:39] LABS: POTASSIUM 4.4 mmol/L (3.5-5.1)
[2023-10-13 12:05] LABS: BLOOD UREA NITROGEN 13.6 mg/dL (7-18); CALCIUM 9.6 mg/dL (8.5-10.1)
[2023-10-13 12:08] LABS: CREATININE 1.4 mg/dL (0.55-1.3)
[2023-10-13 12:09] LABS: ALBUMIN 3.2 g/dl (3.4-5.0)
[2023-10-13 12:10] LABS: BILIRUBIN,TOTAL 0.2 mg/dL (0.2-1); TOT PROT 7.5 g/dl (6.4-8.2)
[2023-10-13] MEDS: THIAMINE HCL 100 MG TABLET (FP) PO SCH (21:41)
[2023-10-13] MEDS: MELATONIN 5 MG TABLETS PO SCH (21:41)
[2023-10-13] MEDS: traZODone HCL 100 MG TABLET (FP) PO SCH (21:41)
[2023-10-13] MEDS ORDERED: traZODone HCL 50 MG TABLET (FP) PO SCH (22:00)
[2023-10-14] MEDS: INSULIN SLIDING SCALE (NOVOLOG) 1 VIAL SQ SCH ×4 (06:40→21:36)
[2023-10-14] MEDS: metFORMIN HCL 500 MG TABLET (FP) PO SCH ×2 (06:41→16:15)
[2023-10-14] MEDS: SERTRALINE HCL 50 MG TABLET (FP) PO SCH (10:05)
[2023-10-14] MEDS: PRENATAL VITAMINS W/ FOLIC ACID TABLET (FP) PO SCH (10:05)
[2023-10-14] MEDS: MELATONIN 5 MG TABLETS PO SCH (21:35)
[2023-10-14] MEDS: THIAMINE HCL 100 MG TABLET (FP) PO SCH (21:35)
[2023-10-14] MEDS: traZODone HCL 100 MG TABLET (FP) PO SCH (21:35)
[2023-10-15] MEDS: metFORMIN HCL 500 MG TABLET (FP) PO SCH ×2 (06:43→16:37)
[2023-10-15] MEDS: INSULIN SLIDING SCALE (NOVOLOG) 1 VIAL SQ SCH ×4 (06:46→21:15)
[2023-10-15] MEDS: SERTRALINE HCL 50 MG TABLET (FP) PO SCH (10:32)
[2023-10-15] MEDS: PRENATAL VITAMINS W/ FOLIC ACID TABLET (FP) PO SCH (10:32)
[2023-10-15] MEDS: MELATONIN 5 MG TABLETS PO SCH (21:13)
[2023-10-15] MEDS: traZODone HCL 100 MG TABLET (FP) PO SCH (21:13)
[2023-10-15] MEDS: THIAMINE HCL 100 MG TABLET (FP) PO SCH (21:13)
[2023-10-16] MEDS: metFORMIN HCL 500 MG TABLET (FP) PO SCH ×2 (06:06→16:54)
[2023-10-16] MEDS: INSULIN SLIDING SCALE (NOVOLOG) 1 VIAL SQ SCH ×4 (06:09→21:34)
[2023-10-16] MEDS: SERTRALINE HCL 50 MG TABLET (FP) PO SCH (10:48)
[2023-10-16] MEDS: PRENATAL VITAMINS W/ FOLIC ACID TABLET (FP) PO SCH (10:48)
[2023-10-16] MEDS: traZODone HCL 100 MG TABLET (FP) PO SCH (21:34)
[2023-10-16] MEDS: THIAMINE HCL 100 MG TABLET (FP) PO SCH (21:34)
[2023-10-16] MEDS: MELATONIN 5 MG TABLETS PO SCH (21:34)
[2023-10-17] MEDS: metFORMIN HCL 500 MG TABLET (FP) PO SCH ×2 (06:49→16:18)
[2023-10-17] MEDS: INSULIN SLIDING SCALE (NOVOLOG) 1 VIAL SQ SCH ×4 (06:51→21:08)
[2023-10-17] MEDS: PRENATAL VITAMINS W/ FOLIC ACID TABLET (FP) PO SCH (10:15)
[2023-10-17] MEDS: SERTRALINE HCL 50 MG TABLET (FP) PO SCH (10:16)
[2023-10-17] MEDS: traZODone HCL 100 MG TABLET (FP) PO SCH (21:07)
[2023-10-17] MEDS: THIAMINE HCL 100 MG TABLET (FP) PO SCH (21:07)
[2023-10-17] MEDS: MELATONIN 5 MG TABLETS PO SCH (21:07)
[2023-10-18] MEDS: INSULIN SLIDING SCALE (NOVOLOG) 1 VIAL SQ SCH ×4 (06:12→21:19)
[2023-10-18] MEDS: metFORMIN HCL 500 MG TABLET (FP) PO SCH ×2 (06:12→16:21)
[2023-10-18] MEDS: PRENATAL VITAMINS W/ FOLIC ACID TABLET (FP) PO SCH (09:46)
[2023-10-18] MEDS: SERTRALINE HCL 50 MG TABLET (FP) PO SCH (09:46)
[2023-10-18] MEDS: MELATONIN 5 MG TABLETS PO SCH (21:19)
[2023-10-18] MEDS: THIAMINE HCL 100 MG TABLET (FP) PO SCH (21:19)
[2023-10-18] MEDS: traZODone HCL 100 MG TABLET (FP) PO SCH (21:19)
[2023-10-19] MEDS: metFORMIN HCL 500 MG TABLET (FP) PO SCH ×2 (06:30→16:25)
[2023-10-19] MEDS: INSULIN SLIDING SCALE (NOVOLOG) 1 VIAL SQ SCH ×4 (06:31→21:26)
[2023-10-19] MEDS: SERTRALINE HCL 50 MG TABLET (FP) PO SCH (10:07)
[2023-10-19] MEDS: PRENATAL VITAMINS W/ FOLIC ACID TABLET (FP) PO SCH (10:07)
[2023-10-19] MEDS ORDERED: INSULIN SLIDING SCALE (NOVOLOG) 1 VIAL SQ ONE (11:37)
[2023-10-19] MEDS: traZODone HCL 100 MG TABLET (FP) PO SCH (21:26)
[2023-10-19] MEDS: MELATONIN 5 MG TABLETS PO SCH (21:26)
[2023-10-19] MEDS: THIAMINE HCL 100 MG TABLET (FP) PO SCH (21:26)
[2023-10-20] MEDS: metFORMIN HCL 500 MG TABLET (FP) PO SCH ×2 (06:42→17:08)
[2023-10-20] MEDS: INSULIN SLIDING SCALE (NOVOLOG) 1 VIAL SQ SCH ×5 (06:42→21:39)
[2023-10-20] MEDS: SERTRALINE HCL 50 MG TABLET (FP) PO SCH (09:29)
[2023-10-20] MEDS: PRENATAL VITAMINS W/ FOLIC ACID TABLET (FP) PO SCH (09:29)
[2023-10-20] MEDS: MELATONIN 5 MG TABLETS PO SCH (21:38)
[2023-10-20] MEDS: traZODone HCL 100 MG TABLET (FP) PO SCH (21:38)
[2023-10-20] MEDS: THIAMINE HCL 100 MG TABLET (FP) PO SCH (21:38)
[2023-10-21] MEDS: metFORMIN HCL 500 MG TABLET (FP) PO SCH ×2 (07:12→16:30)
[2023-10-21] MEDS: INSULIN SLIDING SCALE (NOVOLOG) 1 VIAL SQ SCH ×4 (07:13→21:42)
[2023-10-21] MEDS: SERTRALINE HCL 50 MG TABLET (FP) PO SCH (10:09)
[2023-10-21] MEDS: PRENATAL VITAMINS W/ FOLIC ACID TABLET (FP) PO SCH (10:09)
[2023-10-21] MEDS: traZODone HCL 100 MG TABLET (FP) PO SCH (21:41)
[2023-10-21] MEDS: MELATONIN 5 MG TABLETS PO SCH (21:42)
[2023-10-21] MEDS: THIAMINE HCL 100 MG TABLET (FP) PO SCH (21:42)
[2023-10-22] MEDS: INSULIN SLIDING SCALE (NOVOLOG) 1 VIAL SQ SCH ×4 (06:34→21:33)
[2023-10-22] MEDS: metFORMIN HCL 500 MG TABLET (FP) PO SCH ×2 (06:34→16:40)
[2023-10-22] MEDS: SERTRALINE HCL 50 MG TABLET (FP) PO SCH (09:38)
[2023-10-22] MEDS: PRENATAL VITAMINS W/ FOLIC ACID TABLET (FP) PO SCH (09:38)
[2023-10-22] MEDS: traZODone HCL 100 MG TABLET (FP) PO SCH (21:30)
[2023-10-22] MEDS: THIAMINE HCL 100 MG TABLET (FP) PO SCH (21:31)
[2023-10-22] MEDS: MELATONIN 5 MG TABLETS PO SCH (21:33)
[2023-10-23] MEDS: metFORMIN HCL 500 MG TABLET (FP) PO SCH ×2 (06:14→16:23)
[2023-10-23] MEDS: INSULIN SLIDING SCALE (NOVOLOG) 1 VIAL SQ SCH ×4 (06:15→21:01)
[2023-10-23] MEDS: PRENATAL VITAMINS W/ FOLIC ACID TABLET (FP) PO SCH (09:44)
[2023-10-23] MEDS: SERTRALINE HCL 50 MG TABLET (FP) PO SCH (09:45)
[2023-10-23] MEDS: THIAMINE HCL 100 MG TABLET (FP) PO SCH (21:00)
[2023-10-23] MEDS: MELATONIN 5 MG TABLETS PO SCH (21:00)
[2023-10-23] MEDS: traZODone HCL 100 MG TABLET (FP) PO SCH (21:00)
[2023-10-24] MEDS: INSULIN SLIDING SCALE (NOVOLOG) 1 VIAL SQ SCH ×4 (06:04→21:11)
[2023-10-24] MEDS: metFORMIN HCL 500 MG TABLET (FP) PO SCH ×2 (06:04→16:22)
[2023-10-24] MEDS: PRENATAL VITAMINS W/ FOLIC ACID TABLET (FP) PO SCH (09:53)
[2023-10-24] MEDS: SERTRALINE HCL 50 MG TABLET (FP) PO SCH (09:54)
[2023-10-24] MEDS: traZODone HCL 100 MG TABLET (FP) PO SCH (21:11)
[2023-10-24] MEDS: MELATONIN 5 MG TABLETS PO SCH (21:11)
[2023-10-24] MEDS: THIAMINE HCL 100 MG TABLET (FP) PO SCH (21:11)
[2023-10-25] MEDS: INSULIN SLIDING SCALE (NOVOLOG) 1 VIAL SQ SCH ×4 (06:43→21:01)
[2023-10-25] MEDS: metFORMIN HCL 500 MG TABLET (FP) PO SCH ×2 (06:43→16:16)
[2023-10-25] MEDS: PRENATAL VITAMINS W/ FOLIC ACID TABLET (FP) PO SCH (09:54)
[2023-10-25] MEDS: SERTRALINE HCL 50 MG TABLET (FP) PO SCH (09:54)
[2023-10-25] MEDS ORDERED: INSULIN SLIDING SCALE (NOVOLOG) 1 VIAL SQ ONE (11:33)
[2023-10-25] MEDS: traZODone HCL 100 MG TABLET (FP) PO SCH (21:01)
[2023-10-25] MEDS: MELATONIN 5 MG TABLETS PO SCH (21:01)
[2023-10-25] MEDS: THIAMINE HCL 100 MG TABLET (FP) PO SCH (21:01)
[2023-10-26] MEDS: metFORMIN HCL 500 MG TABLET (FP) PO SCH (06:41)
[2023-10-26] MEDS: INSULIN SLIDING SCALE (NOVOLOG) 1 VIAL SQ SCH (06:42)
[2023-10-26 07:27] VITALS: TEMP 98
[2023-10-26 09:05] VITALS: BP 108/57; PULSE 69; RESP 16
[2023-10-26] MEDS: PRENATAL VITAMINS W/ FOLIC ACID TABLET (FP) PO SCH (09:10)
[2023-10-26] MEDS: SERTRALINE HCL 50 MG TABLET (FP) PO SCH (09:11)
== END 2023-10-26 10:34 | disposition home or self-care (01) | DRG 772 ==
LOC: YASAS 17:51 → Y3W 21:59
PROVIDERS: ADMIT Allergy & Immunology; ATTEND Psychiatry & Neurology Pain Medicine
PROC: HZ42ZZZ Group Counseling for Substance Abuse Treatment, Cognitive-Behavioral (ICD-10-PCS; principal; 2023-10-12)
DX: F10.20 Alcohol dependence, uncomplicated (principal); F14.20 Cocaine dependence, uncomplicated; F16.20 Hallucinogen dependence, uncomplicated; F12.20 Cannabis dependence, uncomplicated; F32.A Depression, unspecified; F41.9 Anxiety disorder, unspecified; G62.9 Polyneuropathy, unspecified; E78.5 Hyperlipidemia, unspecified; E11.42 Type 2 diabetes mellitus with diabetic polyneuropathy; Z79.4 Long term (current) use of insulin; Z79.84 Long term (current) use of oral hypoglycemic drugs; Z62.810 Personal history of physical and sexual abuse in childhood; Z89.511 Acquired absence of right leg below knee; Z89.422 Acquired absence of other left toe(s); Z59.01 Sheltered homelessness; Z72.0 Tobacco use; Z99.89 Dependence on other enabling machines and devices
CPT/HCPCS: 36415; 80053; 81003; 82962; 85027; 86780; 87635